=== PATIENT | male | born 1995 | race Caucasian/White ===

== ENCOUNTER 2016-12-22 20:02 | Emergency (ER) | payer OTHER ==
[~2016-12-22] VITALS: Ht 193 cm; Wt 83.6 kg
[2016-12-22 20:09] VITALS: BP 151/88; PULSE 89; TEMP 98.5
[2016-12-22] MEDS ORDERED: PERCOCET 325 MG1 TA2 PO (21:19)
== END 2016-12-22 21:30 | disposition home or self-care (01) ==
LOC: COL.ER 20:02
DX: S42.032A Displaced fracture of lateral end of left clavicle, initial encounter for closed fracture (principal); V29.3XXA Motorcycle rider (driver) (passenger) injured in unspecified nontraffic accident, initial encounter